=== PATIENT | male | born 1955 | race Caucasian/White ===

== ENCOUNTER 2017-04-22 06:17 | Day surgery (SDC) | payer BC ==
[2017-04-19 13:25] LABS: HEMATOCRIT 46.2 % (39.2-51.8); HEMOGLOBIN 15.7 g/dL (13.7-18.0); WHITE BLOOD COUNT 8.6 x10^3/uL (3.4-10)
[2017-04-19 13:33] LABS: BLOOD UREA NITROGEN 25 mg/dL (7-18)
[~2017-04-22] VITALS: Ht 182.9 cm; Wt 99.8 kg
[~2017-04-22 06:17] MED LIST: ASPI-496 PO; ATEN25TA PO; ATOR20TA PO; CALCIUM PO; ESCI10TA PO; FAMO20TA37 PO
[2017-04-22 07:02] VITALS: BP 150/91
[2017-04-22] MEDS ORDERED: DIPH-540 PO (07:05)
[2017-04-22] MEDS ORDERED: HEPARIN 1,000 UNITS/ML, 10ML ONE (07:22)
[2017-04-22] MEDS ORDERED: NITROGLYCERIN 5 MG/ML, 10ML ONE (07:22)
[2017-04-22] MEDS ORDERED: MIDAZOLAM 1 MG/ML, 5ML ONE (07:23)
[2017-04-22] MEDS ORDERED: FENTANYL PF 100 MCG/2ML ONE (07:23)
[2017-04-22] MEDS ORDERED: PROTAMINE SULFATE 10 MG/ML, 25ML ONE (07:24)
[2017-04-22] MEDS ORDERED: NALOXONE 1 MG/ML, 2ML ONE (07:24)
[2017-04-22] MEDS ORDERED: FLUMAZENIL 0.1 MG/1 ML, 5ML ONE (07:24)
[2017-04-22] MEDS ORDERED: LIDOCAINE 2%, 20ML ONE (07:26)
[2017-04-22] MEDS ORDERED: LACTATED RINGERS 1,000 ML IV SCH (09:00)
[2017-04-22] MEDS ORDERED: VISIPAQUE 270 MG/ML, 150ML BOTTLE ONE (11:00)
== END 2017-04-22 12:10 | disposition home or self-care (01) ==
LOC: OUT 06:17
PROVIDERS: ATTEND Surgery
DX: I70.211 Atherosclerosis of native arteries of extremities with intermittent claudication, right leg (principal); I10 Essential (primary) hypertension; F17.210 Nicotine dependence, cigarettes, uncomplicated; Z98.890 Other specified postprocedural states; Z79.82 Long term (current) use of aspirin; Z79.01 Long term (current) use of anticoagulants
CPT/HCPCS: 36245; 36415; 75625; 75716; 76937; 80048; 85025; 93005; 99156; 99157; C1769; C1894; J2250; J3010; J3490; Q9966; J1644; J2720; J2310

== ENCOUNTER 2017-07-02 12:32 | Inpatient (IN) | payer BC ==
[~2017-07-02] VITALS: Ht 182.9 cm; Wt 106.4 kg
[~2017-07-02 12:32] MED LIST changes: +DIPH-540 PO
[2017-07-02] MEDS ORDERED: LACTATED RINGERS 1,000 ML IV SCH (13:12)
[2017-07-02 13:13] VITALS: BP 146/93
[2017-07-02] MEDS: PLEASE ENTER HEIGHT AND WEIGHT MC SCH ×2 (13:30→21:30)
[2017-07-02] MEDS ORDERED: THROMBIN 20,000 UNIT VIAL TP ONE ×2 (14:56→14:58)
[2017-07-02] MEDS ORDERED: PROTAMINE SULFATE 10 MG/ML, 5ML ONE (14:56)
[2017-07-02] MEDS ORDERED: HEPARIN 1,000 UNITS/ML, 10ML ONE (14:56)
[2017-07-02] MEDS ORDERED: MIDAZOLAM 1 MG/ML, 2ML ONE (14:58)
[2017-07-02] MEDS ORDERED: FENTANYL PF 100 MCG/2ML ONE ×2 (14:59)
[2017-07-02] MEDS ORDERED: ROCURONIUM 10MG/ML,5ML ONE (15:40)
[2017-07-02] MEDS ORDERED: CEFAZOLIN 1,000 MG ONE (17:44)
[2017-07-02] MEDS ORDERED: NEOSTIGMINE 1 MG/ML, 10ML ONE (17:44)
[2017-07-02] MEDS ORDERED: GLYCOPYRROLATE 0.2MG/1ML, 5ML ONE (17:44)
[2017-07-02] MEDS ORDERED: PROPOFOL 10 MG/ML, 20ML ONE (17:44)
[2017-07-02] MEDS ORDERED: ROCURONIUM 10 MG/ML,10ML ONE (17:44)
[2017-07-02] MEDS ORDERED: SUCCINYLCHOLINE 20 MG/ML, 10ML ONE (17:44)
[2017-07-02] MEDS ORDERED: ONDANSETRON 2MG/ML, 2ML ONE ×2 (17:44→18:43)
[2017-07-02] MEDS ORDERED: DEXAMETHASONE 4 MG/ML, 1ML ONE (17:44)
[2017-07-02] MEDS ORDERED: HYDROcodone/APAP 7.5-325MG/15ML UDC PO PRN (18:00)
[2017-07-02] MEDS ORDERED: METOPROLOL 1 MG/ML, 5ML IV PRN (18:00)
[2017-07-02] MEDS ORDERED: HYDROmorphone 1 MG/ML, 1ML IV PRN (18:00)
[2017-07-02] MEDS ORDERED: LABETALOL 5MG/ML, 20ML IV PRN (18:00)
[2017-07-02] MEDS ORDERED: OXYcodone 5 MG/5 ML ORAL.SOL UDC PO PRN (18:00)
[2017-07-02] MEDS ORDERED: ALBUTEROL/IPRATROPIUM 2.5MG/0.5MG, 3 ML NPPB PRN (18:00)
[2017-07-02] MEDS ORDERED: MIDAZOLAM 1 MG/ML, 2ML IV PRN (18:00)
[2017-07-02] MEDS ORDERED: ACETAMINOPHEN 325 MG TABLET PO PRN (18:00)
[2017-07-02] MEDS ORDERED: DIAZEPAM 5 MG/ML, 2ML IVPush PRN (18:00)
[2017-07-02] MEDS ORDERED: FENTANYL PF 100 MCG/2ML IV PRN (18:00)
[2017-07-02] MEDS ORDERED: hydrALAzine 20 MG/ML, 1ML IV PRN (18:00)
[2017-07-02] MEDS ORDERED: ALBUTEROL SULFATE 2.5 MG/3 ML NPPB PRN (18:00)
[2017-07-02] MEDS ORDERED: MEPERIDINE/PF 25MG/0.5ML IVPush PRN (18:00)
[2017-07-02] MEDS ORDERED: EPHEDRINE 50 MG/ML, 1ML IVPush PRN (18:00)
[2017-07-02] MEDS ORDERED: PROMETHAZINE 25 MG/ML, 1ML IV PRN (18:00)
[2017-07-02] MEDS ORDERED: ONDANSETRON 2MG/ML, 2ML IVPush PRN ×2 (18:00→20:00)
[2017-07-02] MEDS ORDERED: VISIPAQUE 320MG/ML, 50ML BOTTLE ONE (18:43)
[2017-07-02] MEDS ORDERED: MORPHINE SULFATE 4 MG/ML, 1ML ONE (19:13)
[2017-07-02] MEDS ORDERED: ACETAMINOPHEN 650 MG/20.3 ML UDC PO PRN (20:00)
[2017-07-02] MEDS ORDERED: ATENOLOL 25 MG TABLET PO SCH (21:00)
[2017-07-02 21:15] VITALS: BP 124/76
[2017-07-03] MEDS: POTASSIUM CHLORIDE 20 MEQ in D5%-0.45% NACL 1,000 ML IV SCH ×3 (00:06→20:06)
[2017-07-03] MEDS: ENOXAPARIN 40 MG/0.4 ML SQ SCH ×2 (00:06→21:28)
[2017-07-03] MEDS: ATORVASTATIN 20 MG TABLET PO SCH ×2 (00:06→21:27)
[2017-07-03] MEDS: CEFAZOLIN PMX 2GM/50ML 50 ML IVPB SCH ×2 (00:08→08:03)
[2017-07-03 00:16] VITALS: BP 113/70
[2017-07-03 03:55] VITALS: BP 111/67
[2017-07-03 05:09] LABS: HEMATOCRIT 39.5 % (39.2-51.8); HEMOGLOBIN 13.5 g/dL (13.7-18.0); WHITE BLOOD COUNT 9.9 x10^3/uL (3.4-10)
[2017-07-03 05:22] LABS: BLOOD UREA NITROGEN 21 mg/dL (7-18)
[2017-07-03] MEDS: ASPIRIN 325 MG TABLET EC PO SCH (06:08)
[2017-07-03 07:09] VITALS: BP 108/55
[2017-07-03] MEDS: FAMOTIDINE 20 MG TABLET PO SCH (08:03)
[2017-07-03] MEDS: CITALOPRAM 20 MG TABLET PO SCH (08:03)
[2017-07-03] MEDS: DIPHENHYDRAMINE 25 MG CAPSULE PO SCH (08:03)
[2017-07-03] MEDS: CALCIUM CARBONATE 500 MG TABLET PO SCH (08:03)
[2017-07-03] MEDS ORDERED: NICOTINE 21 MG/24 HR PATCH.TD24 TD SCH ×2 (12:30)
[2017-07-03 13:03] VITALS: BP 112/58
[2017-07-03 19:43] VITALS: BP 114/63
[2017-07-03] MEDS ORDERED: ATENOLOL 50 MG TABLET PO SCH (21:00)
[2017-07-04 01:37] VITALS: BP 121/59
[2017-07-04] MEDS: POTASSIUM CHLORIDE 20 MEQ in D5%-0.45% NACL 1,000 ML IV SCH (05:40)
[2017-07-04] MEDS: ASPIRIN 325 MG TABLET EC PO SCH (06:03)
[2017-07-04 08:30] VITALS: BP 149/77
[2017-07-04] MEDS: FAMOTIDINE 20 MG TABLET PO SCH (08:40)
[2017-07-04] MEDS: CALCIUM CARBONATE 500 MG TABLET PO SCH (08:40)
[2017-07-04] MEDS: DIPHENHYDRAMINE 25 MG CAPSULE PO SCH (08:40)
[2017-07-04] MEDS: CITALOPRAM 20 MG TABLET PO SCH (08:40)
[2017-07-04] MEDS ORDERED: PNEUMOCOCCAL 23 VACCINE IM-VACC ONE (09:00)
[2017-07-04] MEDS ORDERED: FLU VACC QS2017-18 (36MOS+) UP/PF 0.5 ML IM-VACC ONE (09:00)
[2017-07-04 11:06] VITALS: BP 155/85
== END 2017-07-04 11:40 | disposition home or self-care (01) | DRG 254 ==
LOC: ORIP 12:32 → 4NOR 21:09 → DCLOUNGE 07-04 11:30
PROVIDERS: ADMIT Surgery; ATTEND Surgery
PROC: 041L0ZL Bypass Left Femoral Artery to Popliteal Artery, Open Approach (ICD-10-PCS; 2017-07-02)
PROC: 04UL07Z Supplement Left Femoral Artery with Autologous Tissue Substitute, Open Approach (ICD-10-PCS; 2017-07-02)
PROC: 04CL0ZZ Extirpation of Matter from Left Femoral Artery, Open Approach (ICD-10-PCS; principal; 2017-07-02 17:00)
DX: I73.9 Peripheral vascular disease, unspecified (principal)
CPT/HCPCS: 36415; 71010; 75710; 80048; 82040; 85025; 90686; 90732; C1729; J0690; J1100; J1644; J1650; J2250; J2405; J2704; J2710; J2720; J3010; J3480; J3490; Q9967; C1760; J0330; Q0163

== ENCOUNTER 2017-07-05 01:01 | Emergency (ER) | payer BC ==
[~2017-07-05] VITALS: Ht 182.9 cm; Wt 104.2 kg
[2017-07-05 01:59] LABS: HEMATOCRIT 40.6 % (39.2-51.8); HEMOGLOBIN 13.9 g/dL (13.7-18.0); WHITE BLOOD COUNT 10.1 x10^3/uL (3.4-10)
[2017-07-05] MEDS ORDERED: SODIUM CHLORIDE 0.9% 1,000ML IVBOLUS ONE (02:00)
[2017-07-05] MEDS ORDERED: SODIUM CHLORIDE FLUSH 10ML SYR IVF ONE (02:00)
[2017-07-05 02:10] LABS: BLOOD UREA NITROGEN 19 mg/dL (7-18)
[2017-07-05] MEDS ORDERED: OMNIPAQUE 350 MG/ML, 100ML BOTTLE ONE (02:33)
[2017-07-05 03:00] VITALS: BP 154/80
== END 2017-07-05 03:02 | disposition home or self-care (01) ==
LOC: ED 01:42
DX: F41.1 Generalized anxiety disorder (principal); I10 Essential (primary) hypertension
CPT/HCPCS: 36415; 71275; 80048; 82040; 85025; 93005; 96360; 96361; 99285; J7030; Q9967

== ENCOUNTER 2017-07-30 10:32 | Inpatient (IN) | payer BC ==
[2017-07-24 11:23] VITALS: BP 147/90
[~2017-07-30] VITALS: Ht 182.9 cm; Wt 102.9 kg
[~2017-07-30 10:32] MED LIST changes: +CALC-534 PO
[2017-07-30] MEDS ORDERED: HEPARIN 1,000 UNITS/ML, 10ML ONE (10:39)
[2017-07-30] MEDS ORDERED: BUPIVACAINE/PF 0.25% ONE (10:39)
[2017-07-30] MEDS ORDERED: BUPIVACAINE/PF 0.5% ONE (10:39)
[2017-07-30] MEDS ORDERED: PROTAMINE SULFATE 10 MG/ML, 5ML ONE (10:39)
[2017-07-30] MEDS ORDERED: THROMBIN 20,000 UNIT VIAL TP ONE (10:39)
[2017-07-30] MEDS ORDERED: LACTATED RINGERS 1,000 ML IV SCH (10:52)
[2017-07-30] MEDS ORDERED: FENTANYL PF 100 MCG/2ML ONE ×2 (12:26)
[2017-07-30] MEDS ORDERED: MIDAZOLAM 1 MG/ML, 2ML ONE (12:26)
[2017-07-30] MEDS ORDERED: ROCURONIUM 10 MG/ML,10ML ONE ×2 (12:28→15:16)
[2017-07-30] MEDS ORDERED: PHENYLEPHRINE 10 MG/ML ONE (12:30)
[2017-07-30] MEDS ORDERED: CEFAZOLIN 1,000 MG ONE (13:06)
[2017-07-30] MEDS ORDERED: HYDROmorphone 2 MG/ML, 1ML ONE (13:51)
[2017-07-30] MEDS ORDERED: KETAMINE 10 MG/ML, 20ML ONE (13:53)
[2017-07-30] MEDS ORDERED: PROPOFOL 10 MG/ML, 20ML ONE (15:16)
[2017-07-30] MEDS ORDERED: LIDOCAINE 2% 100MG/5ML SYRINGE ONE (15:16)
[2017-07-30] MEDS ORDERED: ONDANSETRON 2MG/ML, 2ML ONE ×2 (15:16)
[2017-07-30] MEDS ORDERED: DEXAMETHASONE 4 MG/ML, 1ML ONE (15:16)
[2017-07-30] MEDS ORDERED: VISIPAQUE 270 MG/ML, 50ML BOTTLE ONE (16:04)
[2017-07-30] MEDS ORDERED: ONDANSETRON 2MG/ML, 2ML IVPush PRN ×2 (16:30)
[2017-07-30] MEDS ORDERED: FENTANYL PF 100 MCG/2ML IV PRN (16:30)
[2017-07-30] MEDS ORDERED: HYDROmorphone 1 MG/ML, 1ML IV PRN (16:30)
[2017-07-30] MEDS ORDERED: PROMETHAZINE 25 MG/ML, 1ML IV PRN (16:30)
[2017-07-30] MEDS ORDERED: hydrALAzine 20 MG/ML, 1ML IV PRN (16:30)
[2017-07-30] MEDS ORDERED: ACETAMINOPHEN 650 MG/20.3 ML UDC PO PRN (16:30)
[2017-07-30] MEDS ORDERED: OXYcodone 5 MG/5 ML ORAL.SOL UDC PO PRN (16:30)
[2017-07-30] MEDS ORDERED: LABETALOL 5MG/ML, 20ML IV PRN (16:30)
[2017-07-30] MEDS ORDERED: LORazepam 2 MG/ML, 1ML IVPush PRN (16:30)
[2017-07-30] MEDS ORDERED: OXYcodone 5 MG/5 ML ORAL.SOL UDC ONE (16:41)
[2017-07-30] MEDS ORDERED: LABETALOL 5MG/ML, 20ML ONE (16:53)
[2017-07-30] MEDS ORDERED: hydrALAzine 20 MG/ML, 1ML ONE (16:53)
[2017-07-30] MEDS ORDERED: ENOXAPARIN 40 MG/0.4 ML SQ SCH (18:00)
[2017-07-30] MEDS ORDERED: NICOTINE 21 MG/24 HR PATCH.TD24 TD SCH (19:00)
[2017-07-30 19:30] VITALS: BP 125/75
[2017-07-30] MEDS ORDERED: ATENOLOL 50 MG TABLET PO SCH (21:00)
[2017-07-30] MEDS ORDERED: ATORVASTATIN 20 MG TABLET PO SCH (21:00)
[2017-07-30] MEDS: CEFAZOLIN PMX 2GM/50ML 50 ML IVPB SCH (21:21)
[2017-07-30] MEDS: D5%-LACTATED RINGERS 1,000 ML IV SCH (21:21)
[2017-07-30 23:24] VITALS: BP 108/61
[2017-07-31 02:59] VITALS: BP 107/57
[2017-07-31] MEDS: D5%-LACTATED RINGERS 1,000 ML IV SCH ×2 (04:23→13:26)
[2017-07-31] MEDS: CEFAZOLIN PMX 2GM/50ML 50 ML IVPB SCH (05:00)
[2017-07-31 06:50] VITALS: BP 104/58
[2017-07-31] MEDS ORDERED: FAMOTIDINE 20 MG TABLET PO SCH ×2 (09:00→21:00)
[2017-07-31] MEDS ORDERED: ASPIRIN 81 MG TABLET EC PO SCH ×2 (09:00→21:00)
[2017-07-31] MEDS ORDERED: CALCIUM/VITAMIN D3 250-125 TABLET PO SCH ×2 (09:00→21:00)
[2017-07-31 13:07] VITALS: BP 110/60
== END 2017-07-31 18:30 | disposition home or self-care (01) | DRG 254 ==
LOC: ORIP 10:32 → 4NOR 17:54
PROVIDERS: ADMIT Surgery; ATTEND Surgery
PROC: 04CK0ZZ Extirpation of Matter from Right Femoral Artery, Open Approach (ICD-10-PCS; 2017-07-30)
PROC: 041K0ZL Bypass Right Femoral Artery to Popliteal Artery, Open Approach (ICD-10-PCS; principal; 2017-07-30 13:00)
DX: I73.9 Peripheral vascular disease, unspecified (principal); E66.9 Obesity, unspecified; F17.210 Nicotine dependence, cigarettes, uncomplicated; E78.5 Hyperlipidemia, unspecified; I10 Essential (primary) hypertension; Z82.49 Family history of ischemic heart disease and other diseases of the circulatory system; Z82.3 Family history of stroke; Z71.6 Tobacco abuse counseling; Z68.30 Body mass index [BMI] 30.0-30.9, adult
CPT/HCPCS: 36415; 75710; 86850; 86900; C1729; J0690; J1100; J1170; J1644; J1650; J2250; J2405; J2704; J2720; J3010; J3490; Q9966; C1760; J0360; J2370; J7120; J7121

== ENCOUNTER 2018-02-23 18:34 | Emergency (ER) | payer BC ==
[~2018-02-23] VITALS: Ht 182.9 cm; Wt 97.3 kg
[2018-02-23 18:37] VITALS: BP 127/75
[2018-02-23] MEDS ORDERED: LIDOCAINE-MPF 2% ,5ML ONE ×2 (19:00→20:18)
[2018-02-23] MEDS ORDERED: LIDOCAINE-MPF 1%, 2ML ONE (19:52)
== END 2018-02-23 21:11 | disposition home or self-care (01) ==
LOC: ED 18:54
DX: L03.116 Cellulitis of left lower limb (principal); L02.416 Cutaneous abscess of left lower limb; I10 Essential (primary) hypertension; Z88.5 Allergy status to narcotic agent; F17.200 Nicotine dependence, unspecified, uncomplicated
CPT/HCPCS: 10160; 99284